=== PATIENT | female | born 1980 | race African-American/Black ===

== ENCOUNTER 2016-10-29 22:01 | Emergency (ER) | payer MEDICAID, OTHER ==
[~2016-10-29] VITALS: Ht 162.6 cm; Wt 135.0 kg
[~2016-10-29 22:01] MED LIST: ALBU0.086 INH; PRED20 PO
[2016-10-29 22:03] VITALS: BP 167/110; PULSE 133; RESP 28; TEMP 98.3; O2SAT 97
[2016-10-29 22:13] VITALS: BP 174/92; PULSE 118; RESP 28; O2SAT 96
[2016-10-29] MEDS ORDERED: RESP: ALBUTEROL 2.5 MG/IPRATROPIUM 0.5 MG NEB (SCH) ONE (22:16)
[2016-10-29] MEDS ORDERED: ALBU.5I NEB (22:17)
[2016-10-29 22:21] VITALS: RESP 22; O2SAT 97
[2016-10-29] MEDS: RESP: ALBUTEROL 2.5 MG/IPRATROPIUM 0.5 MG NEB (SCH) INH ×2 (22:26→22:27)
[2016-10-29] MEDS ORDERED: SODIUM CHLORIDE 0.9% FLUSH 5 ML FLUSH IVF PRN (22:30)
[2016-10-29] MEDS ORDERED: methylPREDNISolone SOD SUCC 125 MG/2 ML VIAL IVP ONE (22:30)
--- NOTE | 2016-10-29 22:37 | PD ---
HPI Chief Complaint: Respiratory Distress Time Seen by Provider: 22:11 Travel History International Travel<30 days: No Contact w/Intl Traveler<30days: No Traveled to known affect area: No History of Present Illness HPI The patient is a 36 year old female who presents to the [facility] emergency department with a history of cough, congestion, clear rhinorrhea that has been present for the last 2 days. She reports that her cough is dry in character. She denies having any fevers. She reports that she was attributing her initial symptoms to an allergy exacerbation area the patient denies taking an oral antihistamine. She does report having a history of asthma and was having to use her albuterol nebulizer treatments more frequently. She reports that today she had to use them every few hours and was not getting any relief this evening, therefore she came to the emergency department for evaluation and treatment. The patient reports that she has some chest tightness in the center of her chest associated with the shortness of breath and wheezing. She has conversational dyspnea noted on arrival. On review of systems, the patient reports that she has had softer than usual stools over the last 2 days. The patient denies any neck pain,abdominal pain, vomiting, diarrhea, urinary symptoms, or neurologic symptoms. [facility] Past Medical History Narrative Medical The patient's past medical history is significant for asthma. She denies ever being intubated previously. The patient has a history of allergic rhinitis. Asthma: Yes Diminished Hearing: No Respiratory: Yes (asthma) Tetanus Vaccination: < 5 Years Influenza Vaccination: No ?: Not Past Surgical History Narrative Surgical The patient's past surgical history is significant for 2. Section: Yes (x2) Hysterectomy: Yes (PARTIAL) Social History Alcohol Use: Yes (SOCIALLY) Tobacco Use: No (quit 3 years ago) Substance Use: No Allergies-Medications (Allergen,Severity, Reaction): Coded Allergies: No Known Allergies (Unverified , 10/29/16) Reported Meds & Prescriptions Reported Meds & Active Scripts Active Loratadine 10 Mg Tab 10 Mg PO DAILY 10 Days Proair Respiclick Inh (Albuterol Sulfate) 90 Mcg/Act Aerp 2 Puff INH Q4-6H PRN Medrol Dosepak (Methylprednisolone) 4 Mg Dspk 4 Mg PO DIRECTED Per Pharmacist direction Augmentin (Amoxicillin-Clavulanate) 875-125 mg Tab 875 Mg PO BID 10 Days not for use in CrCl <30 ml/min. Reported Albuterol Neb (Albuterol Sulfate) 2.5 Mg/0.5 Ml Neb 2.5 Mg NEB Q6HR NEB PRN Note: The Albuterol Sulfate Inhalation Solution is concentrated and must be diluted. Read complete instructions carefully before using. Review of Systems Except as stated in HPI: all other systems reviewed are Neg General / Constitutional: No: Fever Eyes: No: Visual changes HENT: Positive: Rhinitis, Rhinorrhea (clear in color), Congestion, No: Headaches Cardiovascular: Positive: Chest Pain or Discomfort (chest tight), Dyspnea on exertion, No: Edema Respiratory: Positive: Cough, Shortness of Breath, Wheezing Gastrointestinal: Positive: Changes in Bowel Habits, No: Nausea, Vomiting, Diarrhea, Abdominal Pain, Constipation, Indigestion, Loss of Appetite Genitourinary: No: Dysuria Musculoskeletal: No: Pain Skin: No Rash Neurologic: No: Weakness Psychiatric: No: Depression Endocrine: No: Polydipsia Hematologic/Lymphatic: No: Easy Bruising Physical Exam Narrative General: The patient is a well-developed well-nourished female, short of breath on arrival with conversational dyspnea and audible wheezes. Head and Neck exam: Head is normocephalic atraumatic. Eyes: EOMI, pupils are equal round and reactive to light. Nose: Midline septum with pink mucous membranes Mouth: Dentition unremarkable. Moist mucus membranes. Posterior oropharynx is not erythematous. No tonsillar hypertrophy. Uvula midline. Airway patent. Neck: No palpable lymphadenopathy. No nuchal rigidity. No thyromegaly. Cardiovascular: Regular rate and rhythm without murmurs, gallops, or rubs. Lungs: Expiratory wheezes audible throughout bilateral lung tapia, diminished breath sounds in the bases. No rhonchi, no crackles are audible. Abdomen: Soft, without tenderness to palpation in all 4 quadrants of the abdomen. No guarding, rebound, or rigidity. Normal bowel sounds are audible. Extremities: No clubbing, cyanosis, or edema. 2+ pulses in all 4 extremities. No calf tenderness on palpation. Back: No spinous process tenderness to palpation. No costovertebral angle tenderness to palpation. Neurologic Exam: Grossly nonfocal. Skin Exam: No rash noted. Intact skin that is warm and dry. Data Data Last Documented VS Vital Signs Date Time Temp Pulse Resp B/P Pulse Ox O2 Delivery O2 Flow Rate FiO2 10/29/16 23:13 109 22 150/78 98 Room Air 10/29/16 22:03 98.3 Orders Albuterol-Ipratropium Neb (Duoneb Neb) (10/29/16 22:16) Iv Access Insert/Monitor (10/29/16 22:20) Ecg Monitoring (10/29/16 22:20) Oximetry (10/29/16 22:20) Oxygen Administration (10/29/16 22:20) Sodium Chloride 0.9% Flush (Ns Flush) (10/29/16 22:30) Methylprednisolone So Succ Inj (Solumedr (10/29/16 22:30) Albuterol-Ipratropium Neb (Duoneb Neb) (10/29/16 22:30) Complete Blood Count With Diff (10/29/16 22:29) Basic Metabolic Panel (Bmp) (10/29/16 22:29) Chest, Single Ap (10/29/16 22:29) Ed Urine Pregnancytest Poc (10/29/16 22:29) Sodium Chlor 0.9% 1000 Ml Inj (Ns 1000 M (10/29/16 23:15) Ceftriaxone Inj (Rocephin Inj) (10/29/16 23:15) Azithromycin Inj (Zithromax Inj) (10/29/16 23:15) Labs Laboratory Tests Test 10/29/16 22:25 White Blood Count 17.4 TH/MM3 Red Blood Count 4.64 MIL/MM3 Hemoglobin 12.9 GM/DL Hematocrit 38.8 % Mean Corpuscular Volume 83.6 FL Mean Corpuscular Hemoglobin 27.8 PG Mean Corpuscular Hemoglobin 33.3 % Concent Red Cell Distribution Width 13.7 % Platelet Count 362 TH/MM3 Mean Platelet Volume 9.2 FL Neutrophils (%) (Auto) 62.2 % Lymphocytes (%) (Auto) 26.1 % Monocytes (%) (Auto) 6.5 % Eosinophils (%) (Auto) 4.3 % Basophils (%) (Auto) 0.9 % Neutrophils # (Auto) 10.9 TH/MM3 Lymphocytes # (Auto) 4.5 TH/MM3 Monocytes # (Auto) 1.1 TH/MM3 Eosinophils # (Auto) 0.7 TH/MM3 Basophils # (Auto) 0.2 TH/MM3 CBC Comment DIFF FINAL Differential Comment Sodium Level 140 MEQ/L Potassium Level 3.9 MEQ/L Chloride Level 106 MEQ/L Carbon Dioxide Level 21.9 MEQ/L Anion Gap 12 MEQ/L Blood Urea Nitrogen 11 MG/DL Creatinine 0.86 MG/DL Estimat Glomerular Filtration 91 ML/MIN Rate Random Glucose 135 MG/DL Calcium Level 8.9 MG/DL MDM Medical Decision Making Medical Screen Exam Complete: Yes Emergency Medical Condition: Yes Medical Record Reviewed: Yes Differential Diagnosis Asthma exacerbation due to allergy exacerbation, versus upper respiratory infection, versus pneumonia Narrative Course During the course of the patients emergency department visit, the patients history, examination, and differential diagnosis were reviewed with the patient. The patient had IV access obtained and blood work sent for analysis. The patient was placed on a ekg monitor tech with oximetry and blood pressure monitoring. The patient was provided Solu-Medrol 125 mg IV, DuoNeb 3. The patient on reexamination had improved air movement and was able to converse without difficulty. The patients laboratory studies were reviewed and remarkable for a white count of 17.4, hemoglobin 12.9, platelets 362 with 4.3 eosinophils. The patient was given Rocephin 1 g IV, Zithromax 500 IV. BMP is remarkable for glucose of 135. Radiology studies were reviewed and remarkable for a chest x-ray that showed no acute abnormality. The patient will be discharged home with instructions to follow-up with her primary care physician for reexamination in 2 days. The patient was given a prescription for Augmentin, a Medrol Dosepak taper, a pro-air rescue inhaler, and loratadine for allergy exacerbation. The patient is resting comfortably and feels better, is alert and in no distress. The patients results and examination findings were discussed with the patient. The repeat examination is unremarkable and benign. The history, exam, diagnostic testing, and current condition do not suggest any significant pathology to warrant further testing, continued ED treatment, admission, or surgical evaluation at this point. The vital signs have been stable. The patient does not have uncontrollable pain, intractable vomiting, or other significant symptoms. The patient's condition is stable and appropriate for discharge. The patient will pursue further outpatient evaluation with a primary care physician or other designated or consulting physician as indicated in the discharge instructions. The patient expressed understanding and was agreeable with this plan. Diagnosis Primary Impression: Asthma exacerbation Additional Impression: Bronchitis Referrals: Primary Care Physician 2 days Patient Instructions: Asthma (ED), General Instructions Med/Other Pt SpecificInfo: Prescription(s) given Scripts Loratadine 10 Mg Tab10 Mg PO DAILY 10 Days Ref 0 Prov:Kaci Fernando MD 10/29/16 Albuterol Powder Inh (Proair Respiclick Inh)90 Mcg/Act Aerp2 Puff INH Q4-6H PRN (SHORTNESS OF BREATH) #1 INHALER Ref 0 Prov:Kaci Fernando MD 10/29/16 Methylprednisolone Dosepak (Medrol Dosepak)4 Mg Dspk4 Mg PO DIRECTED #1 DSPK Ref 0 Per Pharmacist direction Prov:Kaci Fernando MD 10/29/16 Amoxicillin-Clavulanate (Augmentin)875-125 mg [id number] Mg PO BID 10 Days Ref 0 not for use in CrCl <30 ml/min. Prov:Kaci Fernando MD 10/29/16 Disposition: 01 DISCHARGE HOME Condition: Stable Kaci Fernando MD Oct 29, 2016 22:37
--- NOTE | 2016-10-29 22:46 | RADRPT ---
EXAM DATE/TIME: 10/29/2016 22:41 [facility] COMPARISON: No previous studies available for comparison. INDICATIONS : Shortness of breath, cough, and chest pain. MEDICAL HISTORY : Asthma. SURGICAL HISTORY : None. ENCOUNTER: Initial ACUITY: 2 days PAIN SCORE: 4/10 LOCATION: Bilateral chest FINDINGS: A single view of the chest demonstrates the lungs to be symmetrically aerated without evidence of mas s, infiltrate or effusion. The cardiomediastinal contours are unremarkable. Osseous structures are intact. CONCLUSION: No acute disease. Cristobal Clements MD on October 29, 2016 at 22:44 Board Certified Radiologist. This report was verified electronically.
[2016-10-29 22:50] LABS: AUTOMATED NEUTROPHIL # 10.9 TH/MM3 (1.8-7.7); BASOPHIL # 0.2 TH/MM3 (0-0.2); BASOPHIL % 0.9 % (0.0-2.0); EOSINOPHIL # 0.7 TH/MM3 (0-0.4); EOSINOPHIL % 4.3 % (0.0-4.0); HEMATOCRIT 38.8 % (35.0-46.0); HEMO FLAGS DIFF FINAL; LYMPH % 26.1 % (9.0-44.0); LYMPHOCYTE # 4.5 TH/MM3 (1.0-4.8); MEAN CELL VOLUME 83.6 FL (80.0-100.0); MEAN CORPUSCULAR HEMOGLOBIN 27.8 PG (27.0-34.0); MEAN CORPUSCULAR HGB CONC 33.3 % (32.0-36.0); MONO % 6.5 % (0.0-8.0); NEUT % 62.2 % (16.0-70.0); PLATELET COUNT 362 TH/MM3 (150-450); RED BLOOD COUNT 4.64 MIL/MM3 (4.00-5.30); RED CELL DISTRIBUTION WIDTH 13.7 % (11.6-17.2); WHITE BLOOD COUNT 17.4 TH/MM3 (4.0-11.0)
[2016-10-29] MEDS ORDERED: ALBU1AER5 INH (23:12)
[2016-10-29] MEDS ORDERED: MEDR4PAK PO (23:12)
[2016-10-29] MEDS ORDERED: AUGM875T PO (23:12)
[2016-10-29 23:13] VITALS: BP 150/78; PULSE 109; RESP 22; O2SAT 98
[2016-10-29] MEDS ORDERED: LORA10TA PO (23:13)
[2016-10-29] MEDS ORDERED: SODIUM CHLOR 0.9% 1000 ML INJ 1,000 ML IV ONE (23:15)
[2016-10-29] MEDS ORDERED: AZITHROMYCIN INJ 500 MG in SODIUM CHLOR 0.9% 250 ML INJ 250 ML IV ONE (23:15)
[2016-10-29] MEDS ORDERED: cefTRIAXone INJ 1,000 MG in SODIUM CHLORIDE 0.9% INJ 100 ML IV ONE (23:15)
[2016-10-29 23:18] LABS: BICARBONATE 21.9 MEQ/L (21.0-32.0); POTASSIUM 3.9 MEQ/L (3.5-5.1)
[2016-10-30 01:19] VITALS: BP 125/74; TEMP 98.9
== END 2016-10-30 01:21 | disposition home or self-care (01) ==
LOC: NEPE 22:01
DX: J45.901 Unspecified asthma with (acute) exacerbation (principal); Z87.891 Personal history of nicotine dependence
CPT/HCPCS: 71010; 80048; 84703; 85025; 94640; 94664; 96365; 96367; 96375; 99283; J0456; J0696; J2930; J7030; J7050

== ENCOUNTER 2016-12-13 10:32 | Inpatient (IN) | payer MEDICAID, OTHER ==
[2016-12-13] VITALS (12 sets, daily range): BP systolic 133–180; BP diastolic 82–99; PULSE 98–123; RESP 18–36; TEMP 97.8–98.5; O2SAT 94–100
[~2016-12-13] VITALS: Ht 162.6 cm; Wt 136.4 kg
[~2016-12-13 10:32] MED LIST changes: +ALBU.5I NEB; -ALBU0.086 INH; +ALBU1AER5 INH; +AUGM875T PO; +LORA10TA PO; +MEDR4PAK PO; -PRED20 PO
[2016-12-13] MEDS: RESP: ALBUTEROL 2.5 MG/IPRATROPIUM 0.5 MG NEB (SCH) INH ×2 (10:58→11:02)
[2016-12-13] MEDS ORDERED: methylPREDNISolone SOD SUCC 125 MG/2 ML VIAL IVP ONE (11:00)
[2016-12-13] MEDS ORDERED: SODIUM CHLORID 0.9% 500 ML INJ 500 ML IV ONE (11:00)
[2016-12-13] MEDS ORDERED: SODIUM CHLORIDE 0.9% FLUSH 10 ML FLUSH IVF PRN (11:00)
[2016-12-13 11:04] LABS: AUTOMATED NEUTROPHIL # 8.8 TH/MM3 (1.8-7.7); BASOPHIL # 0.1 TH/MM3 (0-0.2); EOSINOPHIL % 7.2 % (0.0-4.0); HEMATOCRIT 39.8 % (35.0-46.0); HEMO FLAGS DIFF FINAL; MEAN CELL VOLUME 83.8 FL (80.0-100.0); MEAN CORPUSCULAR HEMOGLOBIN 27.2 PG (27.0-34.0); MEAN CORPUSCULAR HGB CONC 32.5 % (32.0-36.0); MONO % 6.3 % (0.0-8.0); NEUT % 63.5 % (16.0-70.0); PLATELET COUNT 368 TH/MM3 (150-450); RED BLOOD COUNT 4.75 MIL/MM3 (4.00-5.30); WHITE BLOOD COUNT 13.8 TH/MM3 (4.0-11.0)
--- NOTE | 2016-12-13 11:19 | PD ---
HPI Chief Complaint: Respiratory Symptoms Time Seen by Provider: 10:47 Travel History International Travel<30 days: No Contact w/Intl Traveler<30days: No Traveled to known affect area: No History of Present Illness HPI The patient is a 36-year-old Erica female who presents emergency department for shortness of breath. The patient has a history of asthma, notes increasing shortness breath of last several days with chest tightness, wheezing , and a dry nonproductive cough. The patient does have a history of asthma and has been using albuterol nebulizers at home without any alleviation of her symptoms. The patient states her last emergency department visit was approximately 3-4 weeks ago for her asthma. The patient denies any known history of pulmonary embolism, DVT, congestive heart failure, or cardiomyopathy. The patient does not currently have a primary physician. The patient does smoke marijuana occasionally, denies any chronic tobacco use. The patient denies any fever, chills, sweats, or recent upper respiratory infections. The patient denies any known history of sleep apnea. Symptoms are moderate, possibly exacerbated by history of asthma, and minimally alleviated with albuterol inhalers/nebulizers. PFSH Past Medical History Asthma: Yes Diminished Hearing: No Respiratory: Yes (asthma) Influenza Vaccination: No ?: Not Past Surgical History Section: Yes (x2) Hysterectomy: Yes (PARTIAL) Social History Alcohol Use: Yes (SOCIALLY) Tobacco Use: No Substance Use: No Allergies-Medications (Allergen,Severity, Reaction): Coded Allergies: No Known Allergies (Unverified , 12/13/16) Reported Meds & Prescriptions Reported Meds & Active Scripts Active Loratadine 10 Mg Tab 10 Mg PO DAILY 10 Days Proair Respiclick Inh (Albuterol Sulfate) 90 Mcg/Act Aerp 2 Puff INH Q4-6H PRN Reported Albuterol Neb (Albuterol Sulfate) 2.5 Mg/0.5 Ml Neb 2.5 Mg NEB Q6HR NEB PRN Note: The Albuterol Sulfate Inhalation Solution is concentrated and must be diluted. Read complete instructions carefully before using. Review of Systems Except as stated in HPI: all other systems reviewed are Neg General / Constitutional: No: Fever HENT: No: Lightheadedness Cardiovascular: Positive: Chest Pain or Discomfort (tightness) Respiratory: Positive: Cough, Shortness of Breath, Wheezing Gastrointestinal: No: Nausea, Vomiting Musculoskeletal: No: Weakness, Edema Neurologic: No: Dizziness Physical Exam Narrative GENERAL: Awake, alert, 36-year-old female who appears her stated age and is in mild respiratory distress. SKIN: Focused skin assessment reveals warm, slightly diaphoretic across the forehead. HEAD: Atraumatic. Normocephalic. EYES: Pupils equal and round. No scleral icterus. No injection or drainage. ENT: No nasal bleeding or discharge. Mucous membranes pink and moist. NECK: Trachea midline. No JVD. CARDIOVASCULAR: Regular, tachycardic with a heart rate of 110. RESPIRATORY: Tachypnea with a respiratory rate of 30, mild retractions, tight lung sounds throughout with late expiratory wheeze. GASTROINTESTINAL: Abdomen soft, non-tender, nondistended. Obese, no rebound tenderness. Musculoskeletal: No gross edema. NEUROLOGICAL: Awake and alert. No obvious cranial nerve deficits. Motor grossly within normal limits. Normal speech. PSYCHIATRIC: Appropriate mood and affect; insight and judgment normal. Data Data Last Documented VS Vital Signs Date Time Temp Pulse Resp B/P Pulse Ox O2 Delivery O2 Flow Rate FiO2 12/13/16 11:52 99 BiPAP 12/13/16 11:48 40 12/13/16 11:07 6 12/13/16 11:07 111 28 133/82 12/13/16 10:42 97.8 Orders Complete Blood Count With Diff (12/13/16 10:53) Comprehensive Metabolic Panel (12/13/16 10:53) B-Type Natriuretic Peptide (12/13/16 10:53) Act Partial Throm Time (Ptt) (12/13/16 10:53) Prothrombin Time / Inr (Pt) (12/13/16 10:53) Magnesium (Mg) (12/13/16 10:53) Iv Access Insert/Monitor (12/13/16 10:53) Electrocardiogram (12/13/16 10:53) Ecg Monitoring (12/13/16 10:53) Oximetry (12/13/16 10:53) Oxygen Administration (12/13/16 10:53) Chest, Single Ap (12/13/16 10:53) Sodium Chloride 0.9% Flush (Ns Flush) (12/13/16 11:00) Methylprednisolone So Succ Inj (Solumedr (12/13/16 11:00) Albuterol-Ipratropium Neb (Duoneb Neb) (12/13/16 11:00) Sodium Chlorid 0.9% 500 Ml Inj (Ns 500 M (12/13/16 11:00) Resp Bipap / Cpap Non Invas Vt (12/13/16 ) Albuterol Neb Continuous Pack (Albuterol (12/13/16 11:45) Labs Laboratory Tests Test 12/13/16 10:50 White Blood Count 13.8 TH/MM3 Red Blood Count 4.75 MIL/MM3 Hemoglobin 12.9 GM/DL Hematocrit 39.8 % Mean Corpuscular Volume 83.8 FL Mean Corpuscular Hemoglobin 27.2 PG Mean Corpuscular Hemoglobin 32.5 % Concent Red Cell Distribution Width 14.0 % Platelet Count 368 TH/MM3 Mean Platelet Volume 9.7 FL Neutrophils (%) (Auto) 63.5 % Lymphocytes (%) (Auto) 22.0 % Monocytes (%) (Auto) 6.3 % Eosinophils (%) (Auto) 7.2 % Basophils (%) (Auto) 1.0 % Neutrophils # (Auto) 8.8 TH/MM3 Lymphocytes # (Auto) 3.0 TH/MM3 Monocytes # (Auto) 0.9 TH/MM3 Eosinophils # (Auto) 1.0 TH/MM3 Basophils # (Auto) 0.1 TH/MM3 CBC Comment DIFF FINAL Differential Comment Sodium Level 138 MEQ/L Potassium Level 4.3 MEQ/L Chloride Level 104 MEQ/L Carbon Dioxide Level 24.9 MEQ/L Anion Gap 9 MEQ/L Blood Urea Nitrogen 10 MG/DL Creatinine 0.96 MG/DL Estimat Glomerular Filtration 81 ML/MIN Rate Random Glucose 160 MG/DL Calcium Level 9.0 MG/DL Magnesium Level 2.2 MG/DL Total Bilirubin 0.4 MG/DL Aspartate Amino Transf 18 U/L (AST/SGOT) Alanine Aminotransferase 24 U/L (ALT/SGPT) Alkaline Phosphatase 78 U/L B-Type Natriuretic Peptide LESS THAN 2 PG/ML Total Protein 8.2 GM/DL Albumin 3.6 GM/DL MDM Medical Decision Making Medical Screen Exam Complete: Yes Emergency Medical Condition: Yes Medical Record Reviewed: Yes Interpretation(s) EKG reveals sinus tachycardia with a heart rate of 109. Chest x-rays unremarkable, no acute disease Laboratory Tests Test 12/13/16 10:50 White Blood Count 13.8 TH/MM3 Red Blood Count 4.75 MIL/MM3 Hemoglobin 12.9 GM/DL Hematocrit 39.8 % Mean Corpuscular Volume 83.8 FL Mean Corpuscular Hemoglobin 27.2 PG Mean Corpuscular Hemoglobin 32.5 % Concent Red Cell Distribution Width 14.0 % Platelet Count 368 TH/MM3 Mean Platelet Volume 9.7 FL Neutrophils (%) (Auto) 63.5 % Lymphocytes (%) (Auto) 22.0 % Monocytes (%) (Auto) 6.3 % Eosinophils (%) (Auto) 7.2 % Basophils (%) (Auto) 1.0 % Neutrophils # (Auto) 8.8 TH/MM3 Lymphocytes # (Auto) 3.0 TH/MM3 Monocytes # (Auto) 0.9 TH/MM3 Eosinophils # (Auto) 1.0 TH/MM3 Basophils # (Auto) 0.1 TH/MM3 CBC Comment DIFF FINAL Differential Comment Sodium Level 138 MEQ/L Potassium Level 4.3 MEQ/L Chloride Level 104 MEQ/L Carbon Dioxide Level 24.9 MEQ/L Anion Gap 9 MEQ/L Blood Urea Nitrogen 10 MG/DL Creatinine 0.96 MG/DL Estimat Glomerular Filtration 81 ML/MIN Rate Random Glucose 160 MG/DL Calcium Level 9.0 MG/DL Magnesium Level 2.2 MG/DL Total Bilirubin 0.4 MG/DL Aspartate Amino Transf 18 U/L (AST/SGOT) Alanine Aminotransferase 24 U/L (ALT/SGPT) Alkaline Phosphatase 78 U/L B-Type Natriuretic Peptide LESS THAN 2 PG/ML Total Protein 8.2 GM/DL Albumin 3.6 GM/DL Differential Diagnosis Differential diagnosis includes asthma exacerbation, bronchitis, pneumonia, pulmonary embolism, crit myopathy, congestive heart failure, pleural effusion. Narrative Course IV was established, labs are drawn and sent, and the patient was placed on cardiac telemetry monitoring and continuous pulse oximetry monitoring. EKG was ordered and interpreted. Chest x-ray was obtained. The patient was administered Solu-Medrol 125 mg intravenously and duo nebs 3. Chest x-ray was unremarkable. The patient had 3 duo nebs, was reassessed, still had tachypnea with a respiratory rate of 30, mild diaphoresis, and diffuse wheezing. Therefore, patient was placed on BiPAP, patient will need admission to the intensive care unit to monitor her continued respiratory rate and for improvement. Patient may benefit from CT pulmonary angiogram, however, physical examination is consistent with asthma exacerbation. Laboratory evaluation reveals mildly elevated white count, otherwise unremarkable. Chest x -rays negative. Patient did improve with BiPAP, I doubt ulnar embolism, most likely asthma exacerbation. Patient does have large body habitus, large neck girth, weight of 140 kg. Therefore, patient will be admitted to the intensive care unit on BiPAP, for symptoms improved, patient most likely can be downgraded to a medical floor tomorrow. Critical Care Narrative Aggregate critical care time was 40 minutes. Time to perform other separately billable procedures was not included in the critical care time. My time did not include minutes spent treating any other patients simultaneously or on activities that did not directly contribute to the patient's treatment. The services I provided to this patient were to treat and/or prevent clinically significant deterioration that could result in: Anoxia, hypoxia, aspiration, cardiopulmonary arrest. I provided critical care services requiring my management, as noted below: Chart data review, documentation time, medication orders and management, vital sign assessments/reviewing monitor data, ordering and reviewing lab tests, ordering and interpreting/reviewing x-rays and diagnostic studies, care of the patient and discussion of the patient with the admitting physicians. Sepsis Criteria SIRS Criteria (2 or more): Heart rate over 90, RR > 20 or PaCO2 < 32 Criteria Outcome: Meets SIRS criteria Physician Communication Physician Communication The on-call project management manager was paged for admission. I discussed the patient with Dr. Jackson who agrees with admission. Diagnosis Primary Impression: Asthma exacerbation Additional Impression: SIRS (systemic inflammatory response syndrome) Admitting Information Admitting Physician Requests: Admit Condition: Serious Awais Cedillo MD December 13, 2016 11:19
[2016-12-13 11:20] LABS: ANION GAP 9 MEQ/L (5-15); AST (GOT) 18 U/L (15-37); BICARBONATE 24.9 MEQ/L (21.0-32.0); BLOOD UREA NITROGEN 10 MG/DL (7-18); CHLORIDE 104 MEQ/L (98-107); GLOMERULAR FILTRATION RATE 81 ML/MIN (>89); MAGNESIUM 2.2 MG/DL (1.5-2.5); POTASSIUM 4.3 MEQ/L (3.5-5.1); SODIUM (NA) 138 MEQ/L (136-145)
[2016-12-13 11:23] LABS: ALKALINE PHOSPHATASE 78 U/L (45-117); ALT (GPT) 24 U/L (10-53); TOTAL BILIRUBIN ADULT 0.4 MG/DL (0.2-1.0)
[2016-12-13] MEDS: RESP: ALBUTEROL 2.5MG/0.5ML CONTINUOUS NEB 12-PACK NEB SCH ×4 (11:45→16:47)
--- NOTE | 2016-12-13 11:48 | RADRPT ---
EXAM DATE/TIME: 12/13/2016 11:03 [facility] COMPARISON: CHEST SINGLE AP, October 29, 2016, 22:41. INDICATIONS : Chest pain and difficulty breathing. MEDICAL HISTORY : Asthma. SURGICAL HISTORY : None. ENCOUNTER: Initial ACUITY: 2 days PAIN SCORE: 6/10 LOCATION: Bilateral chest FINDINGS: A single view of the chest demonstrates the lungs to be symmetrically aerated without evidence of mas s, infiltrate or effusion. The cardiomediastinal contours are unremarkable. Osseous structures are intact. CONCLUSION: No acute disease. Kel Chacon MD on December 13, 2016 at 11:46 Board Certified Radiologist. This report was verified electronically.
[2016-12-13] MEDS ORDERED: RESP: ALBUTEROL 2.5 MG/3 ML NEB (PRN) ONE ×2 (12:19→12:21)
[2016-12-13] MEDS ORDERED: ONDANSETRON HCL 4 MG/2 ML VIAL IV PRN (12:45)
[2016-12-13] MEDS ORDERED: CHLORHEXIDINE GLUCONATE 2 % 1 PACK (2 CLOTHS) TOP PRN (12:45)
[2016-12-13] MEDS ORDERED: RESP: ALBUTEROL 2.5 MG/3 ML NEB (PRN) NEB (12:45)
[2016-12-13] MEDS ORDERED: SENNOSIDES 8.6 MG TAB PO PRN (12:45)
[2016-12-13] MEDS ORDERED: MISCELLANEOUS NURSING INFORMATION XX SCH (12:45)
[2016-12-13] MEDS ORDERED: SODIUM CHLORIDE 0.9% FLUSH 10 ML FLUSH IV FLUSH PRN (12:45)
[2016-12-13] MEDS ORDERED: ACETAMINOPHEN 325 MG TAB PO PRN (12:45)
--- NOTE | 2016-12-13 13:17 | HHI.HP ---
[facility] Critical Care Medicine Primary Care Physician No Primary Care Physician Admission Diagnosis asthma exacerbation, SIRS Diagnosis: (1) Asthma exacerbation Diagnosis: Principal (2) Acute respiratory failure with hypercapnia Diagnosis: Principal (3) Leukocytosis Diagnosis: Principal (4) Allergic rhinitis Diagnosis: Principal (5) Hyperglycemia Diagnosis: Principal (6) SIRS (systemic inflammatory response syndrome) Diagnosis: Principal Chief Complaint: Shortness of breath 1 week Travel History International Travel<30 Days: No Contact w/Intl Traveler <30 Da: No Traveled to Known Affected Are: No Sepsis Criteria SIRS Criteria (2 or more): RR > 20 or PaCO2 < 32, WBC > 10307, < 4000 or > 10 % bands Criteria Outcome: Meets SIRS criteria History of Present Illness 36-year-old AA female. Date of admission 12/13/2016. Past medical history includes asthma, gestational diabetes. Obesity. Patient is a [employer] employee. For the past week, patient has increasing used her home nebulizer actually, L4 to use it continuously. She'suses 4 times daily for she's been using was constantly at home. Infectious outbreak at her facility. Complains of sore throat, dry now productive cough and fevers and headaches. No sputum. At [facility]. Was noted be very tight with instrument extremity wheezing. Patient received 4 albuterol therapies, 100 mg IV Solu-Medrol and 1 DuoNeb therapy. She is placed on BiPAP secondary to her tachypnea is currently better controlled with the breast. Currently around 16. Chest x-ray revealed no acute cardio pulmonary findings. ABG is currently pending. We are asked to admit Review of Systems Constitutional: COMPLAINS OF: Fatigue, Fever, DENIES: Weight gain, Weight loss Endocrine: DENIES: Polydipsia, Polyuria Eyes: DENIES: Blurred vision, Double Vision Ears, nose, mouth, throat: DENIES: Tinnitus, Toothache, Odynophagia Respiratory: COMPLAINS OF: Cough, Shortness of breath, DENIES: Sputum production Cardiovascular: DENIES: Chest pain, Claudication Gastrointestinal: DENIES: Abdominal pain, Anorexia Genitourinary: DENIES: Urinary incontinence, Urgency Musculoskeletal: DENIES: Joint pain Integumentary: DENIES: Abnormal pigmentation, Pruritus, Rash Hematologic/lymphatic: DENIES: Bruising Immunologic/allergic: DENIES: Eczema Psychiatric: DENIES: Anxiety, Confusion Past Family Social History Allergies: Coded Allergies: No Known Allergies (Unverified , 12/13/16) Past Medical History Asthma Gestational diabetes Morbid obesity Past Surgical History C-sections 2 Partial hysterectomy Reported Medications Reported Meds & Prescriptions Reported Meds & Active Scripts Active Loratadine 10 Mg Tab 10 Mg PO DAILY 10 Days Proair Respiclick Inh (Albuterol Sulfate) 90 Mcg/Act Aerp 2 Puff INH Q4-6H PRN Reported Albuterol Neb (Albuterol Sulfate) 2.5 Mg/0.5 Ml Neb 2.5 Mg NEB Q6HR NEB PRN Note: The Albuterol Sulfate Inhalation Solution is concentrated and must be diluted. Read complete instructions carefully before using. Active Ordered Medications Reviewed in EMR Family History Father's positive for asthma. Social History Positive THC use/socially. Positive EtOH use. Socially. No tobacco or IV drug use. Physical Exam Vital Signs Vital Signs Date Time Temp Pulse Resp B/P Pulse Ox O2 Delivery O2 Flow Rate FiO2 12/13/16 11:52 99 BiPAP 12/13/16 11:48 99 40 12/13/16 11:07 100 Aerosol Mask 6 12/13/16 11:07 111 28 133/82 12/13/16 10:43 123 36 133/82 94 12/13/16 10:42 97.8 117 26 180/99 94 Physical Exam GENERAL: 36-year-old AA female, critically ill currently resting in bed in no acute distress SKIN: Warm and dry. No rash HEAD: Atraumatic. Normocephalic. EYES: Pupils equal and round about 3 mm bilaterally and reactive. No scleral icterus. No injection or drainage. ENT: No nasal bleeding or discharge. Mucous membranes pink and moist. NECK: Trachea midline. No JVD. CARDIOVASCULAR: Tachycardic, RR. S1, S2 no S4. Without murmur RESPIRATORY: Diminished breath sounds throughout. Positive inspiratory and expiratory wheeze GASTROINTESTINAL: Abdomen soft, non-tender, nondistended. Hypoactive bowel sounds MUSCULOSKELETAL: Extremities without clubbing, cyanosis, or edema. No obvious deformities. NEUROLOGICAL: Awake and alert. No obvious cranial nerve deficits. Motor grossly within normal limits. Five out of 5 muscle strength in the arms and legs. Normal speech. PSYCHIATRIC: Appropriate mood and affect; insight and judgment normal. Laboratory Laboratory Tests Test 12/13/16 10:50 White Blood Count 13.8 Red Blood Count 4.75 Hemoglobin 12.9 Hematocrit 39.8 Mean Corpuscular Volume 83.8 Mean Corpuscular Hemoglobin 27.2 Mean Corpuscular Hemoglobin 32.5 Concent Red Cell Distribution Width 14.0 Platelet Count 368 Mean Platelet Volume 9.7 Neutrophils (%) (Auto) 63.5 Lymphocytes (%) (Auto) 22.0 Monocytes (%) (Auto) 6.3 Eosinophils (%) (Auto) 7.2 Basophils (%) (Auto) 1.0 Neutrophils # (Auto) 8.8 Lymphocytes # (Auto) 3.0 Monocytes # (Auto) 0.9 Eosinophils # (Auto) 1.0 Basophils # (Auto) 0.1 CBC Comment DIFF FINAL Differential Comment Sodium Level 138 Potassium Level 4.3 Chloride Level 104 Carbon Dioxide Level 24.9 Anion Gap 9 Blood Urea Nitrogen 10 Creatinine 0.96 Estimat Glomerular Filtration 81 Rate Random Glucose 160 Calcium Level 9.0 Magnesium Level 2.2 Total Bilirubin 0.4 Aspartate Amino Transf 18 (AST/SGOT) Alanine Aminotransferase 24 (ALT/SGPT) Alkaline Phosphatase 78 B-Type Natriuretic Peptide LESS THAN 2 Total Protein 8.2 Albumin 3.6 Result Diagram: 12/13/16 1050 12/13/16 1050 Imaging Last Impressions Chest X-Ray 12/13/16 1053 Signed Impressions: Service Date/Time: Tuesday, December 13, 2016 11:03 - CONCLUSION: No acute disease. Kel Chacon MD Assessment and Plan Assessment and Plan Neuro/Psych: History of THC use Acetaminophen for fever [place]/as needed morphine for pain management CV: Patient is currently normal saline at 84 cc an hour Not requiring antihypertensive and or vasopressors at this time Resp: Acute hypercapnic respiratory failure Asthma exacerbation Currently on BiPAP at 07/17 at 40% ABG pending Chest x-ray reveals no acute cardio pulmonary findings Albuterol nebs every 4 hours and every 2 hours when necessary breakthrough Solu-Medrol 40 mg IV every 2 hours. 125 mg iv x1 given the ED Pulmicort twice a day Wean off BiPAP as clinically indicated GI: Patient currently nothing by mouth. Advanced to heart healthy diet Protonix for GI prophylaxis Colace/as needed Senokot for bowel regimen : Motley if indicated for accurate I's and O's in a critically ill patient Endo: History of gestational diabetes Sliding-scale insulin with Accu-Cheks to maintain euglycemia/before meals/at bedtime/low regimen Renal: Creatinine currently within normal limits Monitor urine output Accurate I's and O's Heme: Leukocytosis Monitor CBC daily. Follow trends ID: Ordered influenza 1 now Start on Rocephin/Zithromax FEN: Replace electrolytes as clinically indicated. Magnesium 2.2 MSK: PT evaluate and treat Access - Utilize peripheral IV. Central line if indicated Prophylaxis - GI - Protonix - DVT - SCD/heparin subcutaneous if not Critical Care: The total critical care time was 55 minutes. Time to perform other separately billable procedures was not included in the critical care time. Code Status Full code Discussed Condition With Dr. Cedillo/ED physician. Patient and . Care plan discussed and all questions answered. Problem Qualifiers (1) Leukocytosis: Qualified Code: D72.829 - Leukocytosis, unspecified type (2) Allergic rhinitis: Qualified Code: J30.2 - Seasonal allergic rhinitis, unspecified allergic rhinitis trigger Gene Jackson MD December 13, 2016 13:17
[2016-12-13 13:39] LABS: BETA HCG QUANT LESS THAN 1 MIU/ML (0-5)
[2016-12-13 14:25] LABS: APTT (PATIENT) 24.5 SEC (24.3-30.1); PROTHROMBIN TIME - PATIENT 10.8 SEC (9.8-11.6)
[2016-12-13] MEDS: SODIUM CHLOR 0.9% 1000 ML INJ 1,000 ML IV SCH (14:55)
[2016-12-13] MEDS: methylPREDNISolone SOD SUCC 125 MG/2 ML VIAL IV PUSH SCH ×2 (14:56→20:23)
[2016-12-13 15:35] LABS: BLOOD GAS BASE EXCESS -2.9 mmol/L (-2-2); BLOOD GAS CARBOXYHEMOGLOBIN 0.8 % (0-4); BLOOD GAS HCO3 22 mmol/L (22-26); BLOOD GAS METHEMOGLOBIN 0.7 % (0-2); BLOOD GAS O2 HGB SATURATION 97 % (90-100); BLOOD GAS OXYGEN CONTENT 18.8 Vol % (12.0-20.0); BLOOD GAS PCO2 41 mmHg (38-42); BLOOD GAS PO2 133 mmHG (61-120); BLOOD GAS TOTAL HGB 13.6 G/DL (12.0-16.0); CRITICAL VALUE NO; OXYGEN DEVICE BiPAP; TEMP CORR TO 98.6; VENT SETTINGS IPAP12/EPAP5
[2016-12-13 15:36] LABS: DRAW SITE RT RADIAL; FIO2 40 %; NUMBER OF ARTERIAL PUNCTURES 1; STAT NO; ULNAR PULSE PRESENT
[2016-12-13] MEDS: RESP: ALBUTEROL 2.5 MG/3 ML NEB (SCH) NEB ×3 (16:00→23:47)
--- NOTE | 2016-12-13 16:31 | EC ---
Study Study Date:12/13/2016 STUDY CONCLUSIONS SUMMARY - Procedure narrative: Transthoracic echocardiography. Image quality was poor. Scanning was performed from the parasternal, apical, and subcostal acoustic windows. - Left ventricle: The cavity size was normal. Wall thickness was normal. Systolic function was vigorous. The estimated ejection fraction was in the range of 65% to 70%. Although no diagnostic regional wall motion abnormality was identified, this possibility cannot be completely excluded on the basis of this study. - Aortic valve: Poorly visualized. - Tricuspid valve: Trace regurgitation. If LV function is below 40, please consider prescribing an ACEI or ARB or document rationale for non-use. PROCEDURE DATA STUDY STATUS: Elective. Procedure: Transthoracic echocardiography. Image quality was poor. Scanning was performed from the parasternal, apical, and subcostal acoustic windows. Study completion: The patient tolerated the procedure well. Transthoracic echocardiography. M-mode, complete 2D, complete spectral Doppler, and color Doppler. Weight: Weight: 307.4lb. Patient status: Inpatient. CARDIAC ANATOMY LEFT VENTRICLE: The cavity size was normal. Wall thickness was normal. Systolic function was vigorous. The estimated ejection fraction was in the range of 65% to 70%. Although no diagnostic regional wall motion abnormality was identified, this possibility cannot be completely excluded on the basis of this study. AORTIC VALVE: Poorly visualized. Doppler: Transvalvular velocity was within the normal range. There was no stenosis. No regurgitation. Valve area: 1.83cm^2(VTI). Valve area: 2.03cm^2 (Vmax). Mean gradient: 3mm Hg (S). AORTA: Aortic root: The aortic root was normal in size. MITRAL VALVE: Structurally normal valve. Doppler: Transvalvular velocity was within the normal range. There was no evidence for stenosis. No regurgitation. Peak gradient: 3mm Hg (D). LEFT ATRIUM: The atrium was normal in size. RIGHT VENTRICLE: The cavity size was normal. Wall thickness was normal. PULMONIC VALVE: Doppler: Transvalvular velocity was within the normal range. There was no evidence for stenosis. No regurgitation. TRICUSPID VALVE: Structurally normal valve. Doppler: Transvalvular velocity was within the normal range. Trace regurgitation. PULMONARY ARTERY: The main pulmonary artery was normal-sized. Systolic pressure was within the normal range. RIGHT ATRIUM: The atrium was normal in size. PERICARDIUM: There was no pericardial effusion. SYSTEMIC VEINS: Inferior vena cava: The vessel was normal in size. Patient weight: 307.4lb _Ejection fraction:_ 65-75% _Fractional shortening:_ 32% up to 5Kg 5-11.5Kg 11.6-22.9Kg 23-45Kg 45-57Kg Aortic Root 7-13 <17 13-22 17-27 17-27 LA diam 6-13 <23 24-38 33-47 37-40 RVID 10-17 7-15 7-15 7-18 8-17 LVIDd 12-22 <32 24-38 33-47 37-40 LVPW 2-4 3-6 5-7 6-8 7-8 IVS 2-4 3-6 5-7 6-8 7-8 BASIC MEASUREMENTS ADULT NORMAL Left ventricle LV internal dimension, ED, chordal level, 46.1 mm 43-52 PLAX LV internal dimension, ES, chordal level, 37.7 mm 23-38 PLAX Fractional shortening, chordal level, PLAX *18 % >29 LV posterior wall thickness, ED 7.18 mm IVS/LVPW ratio, ED 1.07 <1.3 Ventricular septum Septal thickness, ED 7.67 mm Aortic valve Leaflet separation 21 mm 15-26 Aorta Root diameter, ED 23 mm Left atrium Anterior-posterior dimension 25 mm BASIC MEASUREMENTS ADULT NORMAL Aortic valve Leaflet separation 21 mm 15-26 DOPPLER MEASUREMENTS ADULT NORMAL Aortic valve Peak velocity, S 125 cm/s Mean velocity, S 86.6 cm/s VTI, S 20.3 cm Mean gradient, S 3 mm Hg Valve area, VTI 1.83 cm^2 Valve area, Vmax 2.03 cm^2 Mitral valve Peak E-wave velocity 86.4 cm/s Peak A-wave velocity 100 cm/s Deceleration time *120 ms 150-230 Peak gradient, D 3 mm Hg Peak E/A ratio 0.9 Tricuspid valve Regurgitant peak velocity 223 cm/s Peak RV-RA gradient, S 20 mm Hg Maximal regurgitant velocity 223 cm/s Pulmonic valve Peak velocity, S 106 cm/s LEGEND: Mean values are shown as u=mean value. Asterisk (*) nj values outside specified normal range. Prepared and signed by Jose G Hernandez [id number]
[2016-12-13 17:05] LABS: BLOOD, URINE TRACE (NEG); GLUCOSE,URINE NEG (NEG); KETONE, URINE NEG (NEG); MUCUS URINE FEW /lpf (OCC); NITRITE,URINE NEG (NEG); SQUAMOUS EPITHELIAL CELL URINE 2 /hpf (0-5); URINE COLOR YELLOW (YELLW/STRAW)
[2016-12-13 17:06] LABS: COMMENT (UR) CATH-CULT NOT IND; CULTURE IF INDICATED CATH CULTURE NOT IND
[2016-12-13] MEDS: RESP: BUDESONIDE 0.5 MG/2 ML NEB NEB SCH (19:55)
[2016-12-13] MEDS: HEPARIN SODIUM - SQ 10,000 UNITS/ML VIAL SQ SCH (20:23)
[2016-12-13] MEDS: DOCUSATE SODIUM 100 MG CAP PO SCH (20:23)
[2016-12-13] MEDS: SODIUM CHLORIDE 0.9% FLUSH 10 ML FLUSH IV FLUSH SCH (20:24)
[2016-12-13] MEDS: ACETAMINOPHEN/HYDROcodone 325 MG/5 MG TAB PO PRN (21:28)
[2016-12-14] VITALS (20 sets, daily range): BP systolic 138–171; BP diastolic 69–98; PULSE 91–110; RESP 18–28; TEMP 97.8–99; O2SAT 93–99
[2016-12-14] MEDS: SODIUM CHLOR 0.9% 1000 ML INJ 1,000 ML IV SCH (00:35)
[2016-12-14] MEDS: ACETAMINOPHEN/HYDROcodone 325 MG/5 MG TAB PO PRN ×3 (02:47→17:10)
[2016-12-14] MEDS: CHLORHEXIDINE GLUCONATE 2 % 1 PACK (2 CLOTHS) TOP SCH (04:00)
[2016-12-14 04:30] LABS: AUTOMATED NEUTROPHIL # 19.2 TH/MM3 (1.8-7.7); BASOPHIL % 0.1 % (0.0-2.0); HEMATOCRIT 38.8 % (35.0-46.0); HEMO FLAGS DIFF FINAL; LYMPH % 8.4 % (9.0-44.0); LYMPHOCYTE # 1.8 TH/MM3 (1.0-4.8); MEAN CELL VOLUME 84.2 FL (80.0-100.0); MEAN CORPUSCULAR HEMOGLOBIN 26.8 PG (27.0-34.0); MEAN CORPUSCULAR HGB CONC 31.9 % (32.0-36.0); MONO % 1.6 % (0.0-8.0); NEUT % 89.9 % (16.0-70.0); PLATELET COUNT 341 TH/MM3 (150-450); RED CELL DISTRIBUTION WIDTH 13.8 % (11.6-17.2); WHITE BLOOD COUNT 21.4 TH/MM3 (4.0-11.0)
[2016-12-14 04:41] LABS: ANION GAP 8 MEQ/L (5-15); AST (GOT) 11 U/L (15-37); BICARBONATE 24.7 MEQ/L (21.0-32.0); BLOOD UREA NITROGEN 9 MG/DL (7-18); CHLORIDE 104 MEQ/L (98-107); GLOMERULAR FILTRATION RATE 110 ML/MIN (>89); MAGNESIUM 2.2 MG/DL (1.5-2.5); POTASSIUM 4.4 MEQ/L (3.5-5.1); SODIUM (NA) 137 MEQ/L (136-145)
[2016-12-14 04:44] LABS: ALKALINE PHOSPHATASE 74 U/L (45-117); ALT (GPT) 21 U/L (10-53); TOTAL BILIRUBIN ADULT 0.3 MG/DL (0.2-1.0)
--- NOTE | 2016-12-14 04:57 | RADRPT ---
EXAM DATE/TIME: 12/14/2016 03:03 [facility] COMPARISON: CHEST SINGLE AP, December 13, 2016, 11:03. INDICATIONS : Shortness of breath, possible pulmonary disease. MEDICAL HISTORY : Asthma SURGICAL HISTORY : None. ENCOUNTER: Subsequent ACUITY: 2 days PAIN SCORE: 8/10 LOCATION: Bilateral chest FINDINGS: A single view of the chest demonstrates the lungs to be symmetrically aerated without evidence of mas s, infiltrate or effusion. The cardiomediastinal contours are unremarkable. Osseous structures are intact. CONCLUSION: 1. No acute cardiopulmonary disease. Abimael Reddy MD on December 14, 2016 at 4:55 Board Certified Radiologist. This report was verified electronically.
[2016-12-14] MEDS: RESP: ALBUTEROL 2.5 MG/3 ML NEB (SCH) NEB ×6 (05:30→23:48)
[2016-12-14] MEDS: HEPARIN SODIUM - SQ 10,000 UNITS/ML VIAL SQ SCH ×3 (06:01→22:06)
[2016-12-14] MEDS: methylPREDNISolone SOD SUCC 125 MG/2 ML VIAL IV PUSH SCH ×3 (06:01→22:05)
[2016-12-14] MEDS: RESP: BUDESONIDE 0.5 MG/2 ML NEB NEB SCH ×2 (07:35→19:21)
[2016-12-14] MEDS: PANTOPRAZOLE SODIUM 40 MG VIAL IV SCH (08:54)
[2016-12-14] MEDS: LORATADINE 10 MG TAB PO SCH (08:54)
[2016-12-14] MEDS: DOCUSATE SODIUM 100 MG CAP PO SCH ×2 (08:54→22:06)
[2016-12-14] MEDS: SODIUM CHLORIDE 0.9% FLUSH 10 ML FLUSH IV FLUSH SCH ×2 (09:00→22:05)
--- NOTE | 2016-12-14 09:49 | PD.TRANSFR ---
Transfer Summary Admission Date December 13, 2016 at 12:13 Admitting Diagnosis asthma exacerbation, SIRS Diagnoses: (1) Asthma exacerbation Diagnosis: Principal (2) Acute respiratory failure with hypercapnia Diagnosis: Principal (3) Leukocytosis Diagnosis: Principal (4) Allergic rhinitis Diagnosis: Principal (5) Hyperglycemia Diagnosis: Principal (6) SIRS (systemic inflammatory response syndrome) Diagnosis: Principal Significant Findings 2-D echo - EF 65-70%. Transfer Summary/Subjective 36-year-old AA female. Date of admission 12/13/2016. Past medical history includes asthma, gestational diabetes. Obesity. Patient is a long-term employee. For the past week, patient has increasing used her home nebulizer actually, L4 to use it continuously. She'suses 4 times daily for she's been using was constantly at home. Infectious outbreak at her facility. Complains of sore throat, dry now productive cough and fevers and headaches. No sputum. At [facility]. Was noted be very tight with instrument extremity wheezing. Patient received 4 albuterol therapies, 100 mg IV Solu-Medrol and 1 DuoNeb therapy. She is placed on BiPAP secondary to her tachypnea is currently better controlled with the breast. Currently around 16. Chest x-ray revealed no acute cardio pulmonary findings. ABG is currently pending. We are asked to admit Subjective 12/14: Off BiPAP since 5:30 AM. Appears comfort. Currently in 4 L nasal cannula. Very few scattered wheezes appreciated the same. Feels better. Objective Vital Signs Date Time Temp Pulse Resp B/P Pulse Ox O2 Delivery O2 Flow Rate FiO2 12/14/16 07:46 92 12/14/16 07:35 93 Nasal Cannula 4.00 12/14/16 05:00 35 12/14/16 04:00 98.4 19 146/77 Intake and Output 12/13/16 12/13/16 12/14/16 08:00 16:00 00:00 Intake Total 1096 ml Output Total 400 ml Balance 696 ml Result Diagram: 12/14/16 0346 12/14/16 0346 Other Results Microbiology Date/Time Procedure Status Source Growth 12/13/16 13:55 Influenza Types A,B Antigen (CASA) - Final Complete Nasal Aspirate NEGATIVE FOR FLU A AND B ANTIGEN.... Laboratory Tests Test 12/13/16 15:20 Blood Gas Puncture Site RT RADIAL Blood Gas Patient Temperature 98.6 Blood Gas HCO3 22 mmol/L (22-26) Blood Gas Base Excess -2.9 mmol/L (-2-2) Blood Gas Oxygen Saturation 97 % (90-100) Arterial Blood pH 7.35 (7.380-7.420) Arterial Blood Partial 41 mmHg (38-42) Pressure CO2 Arterial Blood Partial 133 mmHG Pressure O2 (61-120) Arterial Blood Oxygen Content 18.8 Vol % (12.0-20.0) Arterial Blood 0.8 % (0-4) Carboxyhemoglobin Arterial Blood Methemoglobin 0.7 % (0-2) Blood Gas Hemoglobin 13.6 G/DL (12.0-16.0) Oxygen Delivery Device BiPAP Blood Gas Ventilator Setting [id number] Blood Gas Inspired Oxygen 40 % Imaging Last Impressions Chest X-Ray 12/14/16 0000 Signed Impressions: Service Date/Time: December 03:03 - CONCLUSION: 1. No acute cardiopulmonary disease. Abimael Reddy MD Objective Remarks GENERAL: 36-year-old AA female, critically ill currently resting in bed in no acute distress SKIN: Warm and dry. No rash HEAD: Atraumatic. Normocephalic. EYES: Pupils equal and round about 3 mm bilaterally and reactive. No scleral icterus. No injection or drainage. ENT: No nasal bleeding or discharge. Mucous membranes pink and moist. NECK: Trachea midline. No JVD. CARDIOVASCULAR: RRR. S1, S2 no S4. Without murmur RESPIRATORY:. Aeration the lungs. Still diminished. Faint end expiratory wheeze throughout all lung tapia. GASTROINTESTINAL: Abdomen soft, non-tender, nondistended. Hypoactive bowel sounds MUSCULOSKELETAL: Extremities without clubbing, cyanosis, or edema. No obvious deformities. NEUROLOGICAL: Awake and alert. No obvious cranial nerve deficits. Motor grossly within normal limits. Five out of 5 muscle strength in the arms and legs. Normal speech. PSYCHIATRIC: Appropriate mood and affect; insight and judgment normal. A/P Assessment and Plan Neuro/Psych: History of THC use Acetaminophen for fever [place]/as needed morphine for pain management CV: Patient is currently normal saline at 84 cc an hour Not requiring antihypertensive and or vasopressors at this time Resp: Acute hypercapnic respiratory failure Asthma exacerbation Currently in 4 L nasal cannula. Titrate to maintain saturations greater than or equal to 92% Intermittent BiPAP Chest x-ray reveals no acute cardio pulmonary findings Albuterol nebs every 4 hours and every 2 hours when necessary breakthrough Solu-Medrol 60 mg IV every 8 hours. 125 mg iv x1 given the ED Pulmicort twice a day GI: Advance to regular diet Protonix for GI prophylaxis Colace/as needed Senokot for bowel regimen : Motley if indicated for accurate I's and O's in a critically ill patient Endo: History of gestational diabetes Sliding-scale insulin with Accu-Cheks to maintain euglycemia/before meals/at bedtime/low regimen Renal: Creatinine currently within normal limits Monitor urine output Accurate I's and O's Heme: Leukocytosis Monitor CBC daily. Follow trends ID: Ordered influenza 1 negative Start on Rocephin/Zithromax day #2 FEN: Replace electrolytes as clinically indicated. Magnesium 2.2 MSK: PT evaluate and treat Access - Utilize peripheral IV. Central line if indicated Prophylaxis - GI - Protonix - DVT - SCD/heparin subcutaneous Critical Care: The total care time was 35 minutes. Time to perform other separately billable procedures was not included in the critical care time. Patient is stable from a critical care medicine standpoint. We will assign care to hospitalist in a.m. 12/15/2016. Transfer to floor Gene Jackson MD December 14, 2016 09:49
--- NOTE | 2016-12-14 18:24 | EKG ---
Date Performed: 12/13/2016 Time Performed: 11:38:22 PTAGE: 36 years EKG: SINUS TACHYCARDIA ABNORMAL RHYTHM ECG Compared to prior tracing no significant change PREVIOUS TRACING : 12/03/2015 12.00 DOCTOR: Abimael Cervantes Interpretating Date/Time 12/14/2016 18:22:33
[2016-12-14] MEDS: MORPHINE SULFATE 4 MG/ML INJ IV PRN (22:11)
[2016-12-15] VITALS (10 sets, daily range): BP systolic 136–161; BP diastolic 72–90; PULSE 88–109; RESP 16–20; TEMP 97.8–98.2; O2SAT 93–98
[2016-12-15] MEDS: SODIUM CHLOR 0.9% 1000 ML INJ 1,000 ML IV SCH ×3 (00:25→21:52)
[2016-12-15] MEDS: CHLORHEXIDINE GLUCONATE 2 % 1 PACK (2 CLOTHS) TOP SCH ×2 (04:00→21:52)
[2016-12-15] MEDS: RESP: ALBUTEROL 2.5 MG/3 ML NEB (SCH) NEB ×3 (05:05→11:58)
[2016-12-15] MEDS: HEPARIN SODIUM - SQ 10,000 UNITS/ML VIAL SQ SCH ×3 (06:08→21:52)
[2016-12-15] MEDS: methylPREDNISolone SOD SUCC 125 MG/2 ML VIAL IV PUSH SCH ×3 (06:08→21:52)
--- NOTE | 2016-12-15 06:17 | RADRPT ---
EXAM DATE/TIME: 12/15/2016 05:07 [facility] COMPARISON: CHEST SINGLE AP, December 14, 2016, 3:03. INDICATIONS : Shortness of breath. MEDICAL HISTORY : Asthma. SURGICAL HISTORY : None. ENCOUNTER: Subsequent ACUITY: 3 days PAIN SCORE: Non-responsive. LOCATION: Bilateral chest FINDINGS: A single view of the chest demonstrates the lungs to be symmetrically aerated without evidence of mas s, infiltrate or effusion. The cardiomediastinal contours are unremarkable. Osseous structures are intact. CONCLUSION: No acute disease. Cristobal Clements MD on December 15, 2016 at 6:15 Board Certified Radiologist. This report was verified electronically.
[2016-12-15] MEDS: DOCUSATE SODIUM 100 MG CAP PO SCH ×2 (07:52→21:52)
[2016-12-15] MEDS: PANTOPRAZOLE SODIUM 40 MG VIAL IV SCH (07:52)
[2016-12-15] MEDS: LORATADINE 10 MG TAB PO SCH (07:52)
[2016-12-15] MEDS: SODIUM CHLORIDE 0.9% FLUSH 10 ML FLUSH IV FLUSH SCH ×2 (07:59→21:52)
[2016-12-15] MEDS: RESP: BUDESONIDE 0.5 MG/2 ML NEB NEB SCH ×2 (08:33→20:59)
[2016-12-15 09:54] LABS: HEMATOCRIT 37.9 % (35.0-46.0); MEAN CELL VOLUME 83.8 FL (80.0-100.0); MEAN CORPUSCULAR HGB CONC 32.2 % (32.0-36.0); PLATELET COUNT 351 TH/MM3 (150-450); RED BLOOD COUNT 4.52 MIL/MM3 (4.00-5.30); RED CELL DISTRIBUTION WIDTH 13.7 % (11.6-17.2); REVIEW FLAG FINAL; WHITE BLOOD COUNT 24.2 TH/MM3 (4.0-11.0)
[2016-12-15 10:13] LABS: BICARBONATE 25.6 MEQ/L (21.0-32.0); POTASSIUM 4.2 MEQ/L (3.5-5.1)
[2016-12-15] MEDS: ACETAMINOPHEN/HYDROcodone 325 MG/5 MG TAB PO PRN ×2 (11:37→18:41)
--- NOTE | 2016-12-15 12:05 | HHI.PR ---
Subjective Remarks Patient in bed, feels tired. She is still with wheezing. Has productive cough clear/white sputum. No feevrs or chills overnight. Doesn't have chest pain. Says she doesn't have O2 at home. she doesn't have a PCP or a pulm doctor, she is searching for a PCP. Says she has nebs, and inhailers at home. Objective Vitals Vital Signs Date Time Temp Pulse Resp B/P Pulse Ox O2 Delivery O2 Flow Rate FiO2 12/15/16 12:01 98 3.00 12/15/16 10:45 109 12/15/16 08:00 98.1 89 16 136/79 93 12/15/16 04:00 97.8 88 16 161/88 93 12/15/16 00:00 97.8 88 20 136/84 97 12/14/16 23:53 98 21 12/14/16 20:00 92 12/14/16 20:00 97.8 93 18 153/86 94 12/14/16 16:04 98.4 95 18 171/84 98 12/14/16 15:34 98 Nasal Cannula 3.00 12/14/16 14:00 103 I/O 12/14/16 12/14/16 12/14/16 12/15/16 12/15/16 12/15/16 07:00 15:00 23:00 07:00 15:00 23:00 Intake Total 649 ml 420 ml 240 ml Output Total 700 ml Balance -51 ml 420 ml 240 ml Intake Oral 240 ml 420 ml 240 ml IV Total 409 ml Output Urine Total 700 ml Stool Total 0 ml # Voids 2 2 # Bowel Movements 0 0 Result Diagram: 12/15/16 0848 12/15/16 0848 Imaging Last Impressions Chest X-Ray 12/15/16 0600 Signed Impressions: Service Date/Time: Thursday, December 15, 2016 05:07 - CONCLUSION: No acute disease. Cristobal Clements MD Objective Remarks GENERAL: Pleasant 36-year-old AA female, morbidly obese, resting in bed, in no acute distress SKIN: Warm and dry. No rash HEAD: Atraumatic. Normocephalic. EYES: No scleral icterus. No injection or drainage. ENT: No nasal bleeding or discharge. Mucous membranes pink and moist. NECK: Trachea midline. No JVD. CARDIOVASCULAR: RRR. S1, S2 no S4, no murmur RESPIRATORY:. Diminished breath sounds. Expiratory wheeze throughout all lung tapia. GASTROINTESTINAL: Abdomen soft, non-tender, nondistended. Obese. Hypoactive bowel sounds MUSCULOSKELETAL: Extremities without clubbing, cyanosis, or edema. No obvious deformities. NEUROLOGICAL: Awake and alert. No obvious cranial nerve deficits. Motor grossly within normal limits. Five out of 5 muscle strength in the arms and legs. Normal speech. PSYCHIATRIC: Appropriate mood and affect; insight and judgment normal. A/P Problem List: (1) Asthma exacerbation ICD Code: J45.901 Status: Acute (2) Acute respiratory failure with hypercapnia ICD Code: J96.02 Status: Acute (3) Leukocytosis ICD Code: D72.829 Status: Acute (4) Allergic rhinitis ICD Code: J30.9 Status: Acute (5) Hyperglycemia ICD Code: R73.9 Status: Acute (6) SIRS (systemic inflammatory response syndrome) ICD Code: R65.10 Status: Acute Assessment and Plan Neuro/Psych: History of THC use Acetaminophen for fever [place]/as needed morphine for pain management CV: Patient is currently normal saline at 84 cc an hour Not requiring antihypertensive and or vasopressors at this time Echocardiogram revealed EF 65-70%. Resp: Acute hypercapnic respiratory failure Asthma exacerbation Currently in 4 L nasal cannula. Titrate to maintain saturations greater than or equal to 92% Intermittent BiPAP Chest x-ray reveals no acute cardio pulmonary findings Albuterol nebs every 4 hours and every 2 hours when necessary breakthrough Solu-Medrol 60 mg IV every 8 hours. 125 mg iv x1 given the ED Pulmicort twice a day Morbid obesity BMI 52.3. Diet and exercise. To follow up with food aide as OP. Patient might have sleep apnea, and she will benefit of sleep study as OP. Patient might benefit from bariatric surgery. GI: Advance to regular diet Protonix for GI prophylaxis Colace/as needed Senokot for bowel regimen : Motley if indicated for accurate I's and O's in a critically ill patient Endo: History of gestational diabetes Sliding-scale insulin with Accu-Cheks to maintain euglycemia/before meals/at bedtime/low regimen Renal: Creatinine currently within normal limits Monitor urine output Accurate I's and O's Heme: Leukocytosis Monitor CBC daily. Follow trends ID: Ordered influenza 1 negative Start on Rocephin/Zithromax day #2 FEN: Replace electrolytes as clinically indicated. Magnesium 2.2 MSK: PT evaluate and treat Access - Utilize peripheral IV. Central line if indicated Prophylaxis - GI - Protonix - DVT - SCD/heparin subcutaneous Discussed with the patient, nurse Slightly improving, not ready for DC yet. Poss DC tomorrow if improves. Problem Qualifiers (1) Leukocytosis: Qualified Code: D72.829 - Leukocytosis, unspecified type (2) Allergic rhinitis: Qualified Code: J30.2 - Seasonal allergic rhinitis, unspecified allergic rhinitis trigger Jojo Crowe MD December 15, 2016 12:05
[2016-12-15] MEDS ORDERED: RESP: ALBUTEROL 2.5 MG/IPRATROPIUM 0.5 MG NEB (PRN) NEB (13:00)
[2016-12-15] MEDS: RESP: ALBUTEROL 2.5 MG/IPRATROPIUM 0.5 MG NEB (SCH) NEB ×2 (14:41→20:59)
[2016-12-15] MEDS: MORPHINE SULFATE 4 MG/ML INJ IV PRN (22:54)
[2016-12-16 00:31] VITALS: BP 129/70; PULSE 98; RESP 18; TEMP 98.3; O2SAT 98
[2016-12-16 04:00] VITALS: BP 142/67; PULSE 80; RESP 18; TEMP 98.2; O2SAT 95
[2016-12-16] MEDS: methylPREDNISolone SOD SUCC 125 MG/2 ML VIAL IV PUSH SCH (05:34)
[2016-12-16] MEDS: HEPARIN SODIUM - SQ 10,000 UNITS/ML VIAL SQ SCH (05:34)
[2016-12-16] MEDS: ACETAMINOPHEN/HYDROcodone 325 MG/5 MG TAB PO PRN (05:34)
[2016-12-16 07:46] LABS: AUTOMATED NEUTROPHIL # 15.7 TH/MM3 (1.8-7.7); BASOPHIL # 0.1 TH/MM3 (0-0.2); BASOPHIL % 0.3 % (0.0-2.0); HEMATOCRIT 38.7 % (35.0-46.0); HEMO FLAGS DIFF FINAL; LYMPH % 11.2 % (9.0-44.0); LYMPHOCYTE # 2.1 TH/MM3 (1.0-4.8); MEAN CELL VOLUME 84.3 FL (80.0-100.0); MEAN CORPUSCULAR HEMOGLOBIN 27.3 PG (27.0-34.0); MEAN CORPUSCULAR HGB CONC 32.4 % (32.0-36.0); MONO % 3.5 % (0.0-8.0); PLATELET COUNT 337 TH/MM3 (150-450); RED BLOOD COUNT 4.59 MIL/MM3 (4.00-5.30); RED CELL DISTRIBUTION WIDTH 13.6 % (11.6-17.2); WHITE BLOOD COUNT 18.4 TH/MM3 (4.0-11.0)
[2016-12-16] MEDS: RESP: ALBUTEROL 2.5 MG/IPRATROPIUM 0.5 MG NEB (SCH) NEB (07:53)
[2016-12-16] MEDS: RESP: BUDESONIDE 0.5 MG/2 ML NEB NEB SCH (07:53)
[2016-12-16 07:56] VITALS: O2SAT 99
[2016-12-16 08:00] VITALS: BP 175/82; PULSE 82; RESP 20; TEMP 98; O2SAT 95
[2016-12-16 08:12] LABS: BICARBONATE 25.3 MEQ/L (21.0-32.0); POTASSIUM 4.3 MEQ/L (3.5-5.1)
[2016-12-16] MEDS ORDERED: PANTOPRAZOLE SOD 40 MG DELAYED RELEASE TAB PO SCH (09:00)
[2016-12-16] MEDS: SODIUM CHLORIDE 0.9% FLUSH 10 ML FLUSH IV FLUSH SCH (09:00)
[2016-12-16] MEDS ORDERED: PRED10PA PO (09:03)
[2016-12-16] MEDS ORDERED: BUDE.5I NEB (09:03)
--- NOTE | 2016-12-16 09:04 | HHI.DS ---
Discharge Summary Admission Date December 13, 2016 at 12:13 Discharge Date: December 16, 2016 Admitting Diagnosis asthma exacerbation, SIRS (1) Asthma exacerbation ICD Code: J45.901 Diagnosis: Principal (2) Acute respiratory failure with hypercapnia ICD Code: J96.02 Diagnosis: Principal (3) Leukocytosis ICD Code: D72.829 Diagnosis: Principal (4) Allergic rhinitis ICD Code: J30.9 Diagnosis: Principal (5) Hyperglycemia ICD Code: R73.9 Diagnosis: Principal (6) SIRS (systemic inflammatory response syndrome) ICD Code: R65.10 Diagnosis: Principal (7) Sleep apnea in adult ICD Code: G47.30 Diagnosis: Principal (8) Morbid obesity with BMI of 50.0-59.9, adult ICD Code: E66.01 Diagnosis: Principal Procedures none Brief History - From Admission 36-year-old AA female. Date of admission 12/13/2016. Past medical history includes asthma, gestational diabetes. Obesity. Patient is a detention employee. For the past week, patient has increasing used her home nebulizer actually, L4 to use it continuously. She'suses 4 times daily for she's been using was constantly at home. Infectious outbreak at her facility. Complains of sore throat, dry now productive cough and fevers and headaches. No sputum. At [facility]. Was noted be very tight with instrument extremity wheezing. Patient received 4 albuterol therapies, 100 mg IV Solu-Medrol and 1 DuoNeb therapy. She is placed on BiPAP secondary to her tachypnea is currently better controlled with the breast. Currently around 16. Chest x-ray revealed no acute cardio pulmonary findings. ABG is currently pending. We are asked to admit CBC/BMP: 12/16/16 0705 12/16/16 0705 Significant Findings Laboratory Tests Test 12/13/16 12/13/16 12/13/16 12/14/16 10:50 15:20 16:30 03:46 White Blood Count 13.8 TH/MM3 21.4 TH/MM3 (4.0-11.0) (4.0-11.0) Eosinophils (%) (Auto) 7.2 % (0.0-4.0) Neutrophils # (Auto) 8.8 TH/MM3 19.2 TH/MM3 (1.8-7.7) (1.8-7.7) Eosinophils # (Auto) 1.0 TH/MM3 (0-0.4) Estimat Glomerular Filtration 81 ML/MIN (>89) Rate Random Glucose 160 MG/DL 210 MG/DL (74-106) (74-106) Blood Gas Base Excess -2.9 mmol/L (-2-2) Arterial Blood pH 7.35 (7.380-7.420) Arterial Blood Partial 133 mmHG Pressure O2 (61-120) Urine Occult Blood TRACE (NEG) Urine Mucus FEW /lpf (OCC) Mean Corpuscular Hemoglobin 26.8 PG (27.0-34.0) Mean Corpuscular Hemoglobin 31.9 % Concent (32.0-36.0) Neutrophils (%) (Auto) 89.9 % (16.0-70.0) Lymphocytes (%) (Auto) 8.4 % (9.0-44.0) Aspartate Amino Transf 11 U/L (15-37) (AST/SGOT) Test 12/15/16 12/16/16 08:48 07:05 White Blood Count 24.2 TH/MM3 18.4 TH/MM3 (4.0-11.0) (4.0-11.0) Estimat Glomerular Filtration 82 ML/MIN (>89) 84 ML/MIN (>89) Rate Random Glucose 230 MG/DL 279 MG/DL (74-106) (74-106) Neutrophils (%) (Auto) 85.0 % (16.0-70.0) Neutrophils # (Auto) 15.7 TH/MM3 (1.8-7.7) Sodium Level 135 MEQ/L (136-145) Imaging Last Impressions Chest X-Ray 12/15/16 0600 Signed Impressions: Service Date/Time: Thursday, December 15, 2016 05:07 - CONCLUSION: No acute disease. Cristobal Clements MD PE at Discharge GENERAL: Pleasant 36-year-old AA female, morbidly obese, resting in bed, in no acute distress SKIN: Warm and dry. No rash HEAD: Atraumatic. Normocephalic. EYES: No scleral icterus. No injection or drainage. ENT: No nasal bleeding or discharge. Mucous membranes pink and moist. NECK: Trachea midline. No JVD. CARDIOVASCULAR: RRR. S1, S2 no S4, no murmur RESPIRATORY:. Diminished breath sounds. Expiratory wheeze throughout all lung tap[place]. GASTROINTESTINAL: Abdomen soft, non-tender, nondistended. Obese. Hypoactive bowel sounds MUSCULOSKELETAL: Extremities without clubbing, cyanosis, or edema. No obvious deformities. NEUROLOGICAL: Awake and alert. No obvious cranial nerve deficits. Motor grossly within normal limits. Five out of 5 muscle strength in the arms and legs. Normal speech. PSYCHIATRIC: Appropriate mood and affect; insight and judgment normal. Transfer Summary 36-year-old AA female. Date of admission 12/13/2016. Past medical history includes asthma, gestational diabetes. Obesity. Patient is a detention employee. For the past week, patient has increasing used her home nebulizer actually, L4 to use it continuously. She'suses 4 times daily for she's been using was constantly at home. Infectious outbreak at her facility. Complains of sore throat, dry now productive cough and fevers and headaches. No sputum. At [facility]. Was noted be very tight with instrument extremity wheezing. Patient received 4 albuterol therapies, 100 mg IV Solu-Medrol and 1 DuoNeb therapy. She is placed on BiPAP secondary to her tachypnea is currently better controlled with the breast. Currently around 16. Chest x-ray revealed no acute cardio pulmonary findings. ABG is currently pending. We are asked to admit Subjective 5/4: Off BiPAP since 5:30 AM. Appears comfort. Currently in 4 L nasal cannula. Very few scattered wheezes appreciated the same. Feels better. Pt update on day of discharge Feels much better. Improved significantly . No wheezing or sob. Wants to go home. Hospital Course Neuro/Psych: History of THC use Acetaminophen for fever [place]/as needed morphine for pain management CV: Patient is currently normal saline at 84 cc an hour Not requiring antihypertensive and or vasopressors at this time Echocardiogram revealed EF 65-70%. Resp: Acute hypercapnic respiratory failure Asthma exacerbation Titrate to maintain saturations greater than or equal to 92% Intermittent BiPAP. OFF BIPAP. Passed O2 walking test. No O2 at home. Patient to follow up as OP with PCP and with pulm. She might benefit from sleep study as OP Chest x-ray reveals no acute cardio pulmonary findings Albuterol nebs every 4 hours and every 2 hours when necessary breakthrough Solu-Medrol 60 mg IV every 8 hours, tapered. Pulmicort twice a day Morbid obesity BMI 52.3. Diet and exercise. To follow up with house mover as OP. Patient might have sleep apnea, and she will benefit of sleep study as OP. Patient might benefit from bariatric surgery. GI: Advance to regular diet Protonix for GI prophylaxis Colace/as needed Senokot for bowel regimen : Motley if indicated for accurate I's and O's in a critically ill patient Endo: History of gestational diabetes Sliding-scale insulin with Accu-Cheks to maintain euglycemia/before meals/at bedtime/low regimen Renal: Creatinine currently within normal limits Monitor urine output Accurate I's and O's Heme: Leukocytosis Monitor CBC daily. Follow trends ID: Ordered influenza 1 negative Start on Rocephin/Zithromax day #2 FEN: Replace electrolytes as clinically indicated. Magnesium 2.2 MSK: PT evaluate and treat Access - Utilize peripheral IV. Central line if indicated Prophylaxis - GI - Protonix - DVT - SCD/heparin subcutaneous Improved. Patient was DC home in stable condition. To followup as OP with PCP and pulm. Pt Condition on Discharge: Stable Discharge Disposition: Discharge Home Discharge Time: > 30 minutes Discharge Instructions DIET: Follow Instructions for: Heart Healthy Diet, Diabetic Diet Activities you can perform: Regular-No Restrictions Follow up Referrals: PCP Follow-up - 2-3 Days Pulmonology - 1 Week New Medications: Ipratropium HFA 12.9 GM Inh (Atrovent HFA 12.9 GM Inh) 17 Mcg/Act Aer 2 PUFF INH Q6HR PRN SHORTNESS OF BREATH #1 Ref 0 INHALER Prednisone (21) 10 mg tab Dose Pack (Prednisone (21) 10 mg tab Dose Pack) 10 Mg Pack 10 MG PO DIRECTED Inflammation #1 Ref 0 DSPK Budesonide Neb (Pulmicort Respules) 0.5 Mg/2 Ml Neb 0.5 MG NEB Q12HR NEB Shortness of Breath #30 NEBULE Continued Medications: Albuterol Neb (Albuterol Neb) 2.5 Mg/0.5 Ml Neb 2.5 MG NEB Q6HR NEB Note: The Albuterol Sulfate Inhalation Solution is concentrated and must be diluted. Read complete instructions carefully before using. PRN SHORTNESS OF BREATH #30 BOX (This prescription has been renewed) Albuterol Powder Inh (Proair Respiclick Inh) 90 Mcg/Act Aerp 2 PUFF INH Q4-6H PRN SHORTNESS OF BREATH #1 Ref 0 INHALER (This prescription has been renewed) Loratadine (Loratadine) 10 Mg Tab 10 MG PO DAILY Allergy Management Days 10 Ref 0 TAB Jojo Crowe MD December 16, 2016 09:03
[2016-12-16] MEDS ORDERED: IPRA17I INH (09:08)
[2016-12-16] MEDS ORDERED: ALBU.5I NEB (09:09)
[2016-12-16] MEDS ORDERED: ALBU1AER5 INH (09:09)
[2016-12-16] MEDS: LORATADINE 10 MG TAB PO SCH (09:59)
[2016-12-16] MEDS: DOCUSATE SODIUM 100 MG CAP PO SCH (09:59)
[2016-12-16] MEDS ORDERED: methylPREDNISolone SOD SUCC 125 MG/2 ML VIAL IV PUSH SCH (21:00)
== END 2016-12-16 10:45 | disposition home or self-care (01) | DRG 189 ==
LOC: NEPE 10:32 → NEDA 12:13 → HIME 17:35 → N04A 12-14 14:45 → HIME 12-14 15:05 → N04A 12-14 15:19
PROVIDERS: ADMIT Hospitalist; ATTEND Hospitalist
PROC: 5A09357 Assistance with Respiratory Ventilation, Less than 24 Consecutive Hours, Continuous Positive Airway Pressure (ICD-10-PCS; principal; 2016-12-13)
DX: J96.02 Acute respiratory failure with hypercapnia (principal); R65.10 Systemic inflammatory response syndrome (SIRS) of non-infectious origin without acute organ dysfunction; Z68.43 Body mass index [BMI] 50.0-59.9, adult; J45.901 Unspecified asthma with (acute) exacerbation; E66.01 Morbid (severe) obesity due to excess calories; J30.9 Allergic rhinitis, unspecified; R73.9 Hyperglycemia, unspecified; G47.30 Sleep apnea, unspecified; F12.90 Cannabis use, unspecified, uncomplicated
CPT/HCPCS: 36600; 71010; 80048; 80053; 81001; 82805; 83735; 83880; 84100; 84702; 85025; 85027; 85610; 85730; 87804; 93005; 93306; 94003; 94620; 94640; 94664; 96361; 96374; C9113; J1644; J2270; J2930; J7030; J7040; J7613; J7626